=== PATIENT | female | born 1975 | race Two or more races ===

== ENCOUNTER 2018-11-25 15:02 | Emergency (ER) | payer OTHER ==
[~2018-11-25] VITALS: Ht 165.1 cm; Wt 90.7 kg
[2018-11-25] MEDS ORDERED: LANTUS SOL100 UNIT/1 (15:21)
[2018-11-25] MEDS ORDERED: HUMALOG KW200 UNIT/1 (15:21)
[2018-11-25] MEDS ORDERED: ATIVAN0.5 M1 (15:21)
== END 2018-11-25 21:22 | disposition home or self-care (01) ==
LOC: ER 15:02
DX: E11.65 Type 2 diabetes mellitus with hyperglycemia (principal)

== ENCOUNTER 2019-07-24 13:03 | Emergency (ER) | payer OTHER ==
[~2019-07-24] VITALS: Ht 165.1 cm; Wt 98.4 kg
[~2019-07-24 13:03] MED LIST: ATIVAN0.5 M1; HUMALOG KW200 UNIT/1; LANTUS SOL100 UNIT/1
[2019-07-24] MEDS ORDERED: FLUCONAZOLE200 MG (13:15)
[2019-07-24] MEDS ORDERED: LORAZEPAM2 MG (13:16)
[2019-07-24] MEDS ORDERED: TRULICITY1.5 MG/0.5 (13:16)
[2019-07-24] MEDS ORDERED: GLIPIZIDE10 MG (13:17)
== END 2019-07-24 18:18 | disposition home or self-care (01) ==
LOC: ER 13:03
DX: B34.8 Other viral infections of unspecified site (principal); F06.4 Anxiety disorder due to known physiological condition; R50.9 Fever, unspecified; R51 Headache; R07.89 Other chest pain

== ENCOUNTER 2020-10-31 16:59 | Emergency (ER) | payer OTHER ==
[~2020-10-31] VITALS: Ht 165.1 cm; Wt 93.4 kg
[~2020-10-31 16:59] MED LIST changes: +FLUCONAZOLE200 MG; +GLIPIZIDE10 MG; +LORAZEPAM2 MG; +TRULICITY1.5 MG/0.5
[2020-10-31] MEDS ORDERED: HUMULIN R500 UNIT/1 SQ (17:17)
[2020-10-31] MEDS ORDERED: CYANOCOBAL1000 MCG/1 IJ (17:18)
[2020-10-31] MEDS ORDERED: ESCITALOPRAM OXA5 MG PO (17:19)
[2020-10-31] MEDS ORDERED: TEMAZEPAM7.5 M1 PO (17:19)
[2020-10-31] MEDS ORDERED: ACETAMINOPHEN650 M2 PO (23:10)
[2020-10-31] MEDS ORDERED: GUAIFENESIN200 MG PO (23:10)
[2020-10-31] MEDS ORDERED: VITAMIN C WIT1000 MG PO (23:10)
== END 2020-10-31 23:40 | disposition home or self-care (01) ==
LOC: ER 16:59
DX: B34.9 Viral infection, unspecified (principal); J06.9 Acute upper respiratory infection, unspecified; J02.9 Acute pharyngitis, unspecified; Z03.818 Encounter for observation for suspected exposure to other biological agents ruled out

== ENCOUNTER 2022-02-26 09:04 | Emergency (ER) | payer OTHER ==
[~2022-02-26] VITALS: Ht 165.1 cm; Wt 102.1 kg
[~2022-02-26 09:04] MED LIST changes: +ACETAMINOPHEN650 M2 PO; +CYANOCOBAL1000 MCG/1 IJ; +ESCITALOPRAM OXA5 MG PO; +GUAIFENESIN200 MG PO; +HUMULIN R500 UNIT/1 SQ; +TEMAZEPAM7.5 M1 PO; +VITAMIN C WIT1000 MG PO
[2022-02-26] MEDS ORDERED: ATIVAN2 M1 PO (09:39)
[2022-02-26] MEDS ORDERED: CYMBALTA60 MG PO (09:39)
[2022-02-26] MEDS ORDERED: SINGULAIR 5MG5 MG PO (09:39)
== END 2022-02-26 14:19 | disposition home or self-care (01) ==
LOC: ER 09:04
DX: N93.8 Other specified abnormal uterine and vaginal bleeding (principal)